=== PATIENT | female | born 1955 ===

== ENCOUNTER 2019-05-09 09:19 | Day surgery (SDC) | payer BC ==
[~2019-05-09 09:19] MED LIST: Acetaminophen TAB* 325 MG PO PRN; Buffered Lidocaine 1% SYRIN* 1 ML/SYRINGE INTRADERM ONE
[2019-05-09] MEDS ORDERED: Ondansetron INJ* 2 MG/ML VIAL ONE (11:20)
[2019-05-09] MEDS ORDERED: Midazolam* 1 MG/ML 5 ML VIAL (5 MG) ONE (11:20)
[2019-05-09] MEDS ORDERED: Trypan Blue 0.06% SOL* 0.5 ML BTL ONE ×2 (11:25→11:51)
[2019-05-09 12:44] VITALS: BP 152/78
[2019-05-09] MEDS ORDERED: acetaZOLAMIDE TAB* 250 MG ONE (12:54)
[2019-05-09] MEDS ORDERED: Cyclopentolate 1% OPTH.SOL* 2 ML BTL ONE (12:54)
[2019-05-09] MEDS ORDERED: Neomycin/Polymy/Dex OPTH.SUSP* MAXITROL 0.1% 5 ML ONE (12:55)
[2019-05-09] MEDS ORDERED: Povidone Iodine 5% OPTH* 30 ML BTL ONE (12:55)
[2019-05-09] MEDS ORDERED: Proparacaine 0.5% OPHTH.SOL* 15 ML BTL ONE (12:55)
[2019-05-09] MEDS ORDERED: Ketorolac 0.5% OPHTH (NF) 0.5 % 5 ML BTL ONE (12:55)
[2019-05-09] MEDS ORDERED: Lidocaine 2% w/ EPI 1:200,000* 20 ML SDV VIAL ONE (12:55)
[2019-05-09] MEDS ORDERED: Lidocaine 1% MPF ** 5 ML VIAL ONE (12:55)
[2019-05-09] MEDS ORDERED: Phenylephrine OPHTH SOL 2.5%* 2 ML ONE (12:55)
--- NOTE | 2019-05-09 21:40 | OP ---
DATE OF OPERATION: 05/09/19 [facility] DATE OF : 55 SURGEON: Ramon Perez M.D. PREOPERATIVE DIAGNOSIS: Cataract, left eye. POSTOPERATIVE DIAGNOSIS: Cataract, left eye. OPERATIVE PROCEDURE: Extracapsular cataract extraction with intraocular lens implant and CTR, left eye. DESCRIPTION OF PROCEDURE: The patient was brought to the operating room after being given 1/2% Alcaine with epinephrine drops in the preoperative area. The eye was prepped and draped in the usual sterile fashion. Sterile drape and eyelid speculum were placed. Again, topical 1/2% Alcaine with epinephrine was given. A paracentesis incision was made at the 3 o'clock position with the No.75 blade. Clear cornea incision 2.2 x 2.2-mm was created at the 6 o'clock position starting at the anterior limbus using the 2.2-mm keratome. The anterior chamber was irrigated with 0.4 mL of 1% non-preservative intracameral lidocaine and filled with DisCoVisc. A capsulorrhexis was completed using the cystotome and the Utrata forceps. Hydrodissection was performed with balanced salt solution. The lens nucleus was removed with the Phacoemulsification handpiece without incident. Cortex was removed with the irrigation-aspiration handpiece. The capsular bag was re-inflated using DisCoVisc and an [id number] implant was inserted with the shooter, oriented to 172 meridian, followed by a CTR 11 inserted with the shooter. VisionBlue was used to stain the anterior capsule prior to capsulorrhexis. All measurements confirmed with ORA. The irrigation-aspiration handpiece was used to remove all residual DisCoVisc. The eye was refilled with balanced salt solution and the wound checked and found to be watertight. Topical Maxitrol drops were given. Indication for complex cataract surgery: White cataract requiring VisionBlue and CTR. [id number]/[facility] #: [id number] [facility]
== END 2019-05-09 12:48 | disposition home or self-care (01) ==
LOC: OREAST 09:19
PROVIDERS: ATTEND Specialist
DX: H25.812 Combined forms of age-related cataract, left eye (principal); I10 Essential (primary) hypertension; H35.372 Puckering of macula, left eye; H47.012 Ischemic optic neuropathy, left eye
CPT/HCPCS: A9270-GY; J2250; J2405; V2787